=== PATIENT | female | born 1965 | race Caucasian/White ===

== ENCOUNTER 2017-06-25 07:54 | Outpatient (CLI) | payer MEDICAID ==
[2017-06-25 12:02] LABS: BASOPHILS % (AUTO) 0.9 %; EOSINOPHILS # (AUTO) 0.1 10^3/uL (0.0-0.7); EOSINOPHILS % (AUTO) 2.9 %; HCT - HEMATOCRIT 41.7 % (37.0-47.0); HGB - HEMOGLOBIN 13.8 g/dL (12.0-16.0); LYMPHOCYTES # (AUTO) 1.3 10^3/uL (1.5-3.5); LYMPHOCYTES % (AUTO) 32.6 %; MEAN CORPUSCULAR HEMOGLOBIN 32.4 pg (27.0-31.0); MEAN CORPUSCULAR HGB CONC 33.2 g/dL (32.0-36.0); MEAN CORPUSCULAR VOLUME 97.8 fL (81.0-99.0); MONOCYTES # (AUTO) 0.4 10^3/uL (0.0-1.0); MONOCYTES % (AUTO) 9.1 %; NEUTROPHILS # (AUTO) 2.1 10^3/uL (1.5-6.6); NEUTROPHILS % (AUTO) 54.5 %; RED BLOOD COUNT 4.26 10^6/uL (4.20-5.40); RED CELL DISTRIBUTION WIDTH 12.2 % (12.0-15.0); UNCORRECTED WHITE BLOOD COUNT 3.9 x10^3/uL; WHITE BLOOD COUNT 3.9 x10^3/uL (4.8-10.8)
[2017-06-25 12:29] LABS: THYROID STIMULATING HORMONE 1.31 uIU/mL (0.34-5.60)
[2017-06-25 12:32] LABS: ALBUMIN/GLOBULIN RATIO 1.6 (1.0-2.2); BILIRUBIN,TOTAL 0.7 mg/dL (0.2-1.0); BUN - BLOOD UREA NITROGEN 16 mg/dL (6-20); CARBON DIOXIDE - CO2 29 mmol/L (21-32); CHLORIDE 102 mmol/L (101-111); CHOL/HDL RATIO 1.9 (<4.4); CHOLESTEROL 161 mg/dL; CREATININE 0.6 mg/dL (0.4-1.0); GFR - MDRD 105 (>89); GLUCOSE 83 mg/dL (70-100); HDL CHOLESTEROL 83 mg/dL; IRON 135 ug/dL (28-170); MAGNESIUM 1.9 mg/dL (1.7-2.8); POTASSIUM 3.8 mmol/L (3.5-5.0); SODIUM 136 mmol/L (135-145); TOTAL IRON BINDING CAPACITY 344 ug/dL (250-450); TOTAL PROTEIN 6.4 g/dL (6.7-8.2); TRANSFERRIN 246 mg/dL (192-382); TRIGLYCERIDES 36 mg/dL
[2017-06-25 12:35] LABS: FERRITIN 22.4 ng/mL (11.0-306.8)
[2017-06-25 12:56] LABS: FOLLICLE STIMULATING HORMONE 123.07 mIU/mL; LDL CHOLESTEROL,DIRECT 59 mg/dL
[2017-06-25 12:57] LABS: LUTEINIZING HORMONE 52.57 mIU/mL
== END 2017-06-25 07:55 | disposition home or self-care (01) ==
LOC: LAB.F 07:54
PROVIDERS: ATTEND Nurse Practitioner Family
DX: R53.83 Other fatigue (principal); Z13.6 Encounter for screening for cardiovascular disorders; F64.9 Gender identity disorder, unspecified; Z79.890 Hormone replacement therapy; R79.0 Abnormal level of blood mineral
CPT/HCPCS: 36415; 80053; 80061; 82607; 82670; 82672; 82728; 83001; 83002; 83540; 83735; 84403; 84443; 84466; 85025; 86141

== ENCOUNTER 2017-12-04 15:08 | Outpatient (CLI) | payer MEDICAID | END 2017-12-04 15:09 | disposition home or self-care (01) | LOC: RT.S 15:08 | PROVIDERS: ATTEND Nurse Practitioner Family | DX: R00.2 Palpitations (principal) | CPT/HCPCS: 93005 ==

== ENCOUNTER 2018-02-19 06:14 | Day surgery (SDC) | payer MEDICAID ==
[2018-02-19] MEDS ORDERED: LACTATED RINGERS 1,000 ML IV ONE (06:35)
[2018-02-19] MEDS ORDERED: fentaNYL 250 MCG/5 ML VIAL IVP ONE (07:54)
[2018-02-19] MEDS ORDERED: MIDAZOLAM 2 MG/2 ML VIAL IVP ONE (07:54)
[2018-02-19 08:53] VITALS: BP 93/66
== END 2018-02-19 06:15 | disposition home or self-care (01) ==
LOC: SDS 06:14
PROVIDERS: ATTEND Surgery
PROC: 0DBK8ZZ Excision of Ascending Colon, Via Natural or Artificial Opening Endoscopic (ICD-10-PCS; principal; 2018-02-19 07:30)
DX: Z12.11 Encounter for screening for malignant neoplasm of colon (principal); D12.2 Benign neoplasm of ascending colon
CPT/HCPCS: 45380; J7120

== ENCOUNTER 2018-11-04 08:52 | Outpatient (CLI) | payer MEDICAID ==
[2018-11-04 18:34] LABS: THYROID STIMULATING HORMONE 1.8 uIU/mL (0.34-5.60)
[2018-11-04 18:36] LABS: FREE T4 (FREE THYROXINE) 0.75 ng/dL (0.58-1.64)
[2018-11-04 18:40] LABS: FERRITIN 21.2 ng/mL (11.0-306.8)
[2018-11-04 19:37] LABS: CHOL/HDL RATIO 1.7 (<4.4); CHOLESTEROL 173 mg/dL; HDL CHOLESTEROL 99 mg/dL
[2018-11-04 20:21] LABS: EOSINOPHILS # (AUTO) 0.1 10^3/uL (0.0-0.7); EOSINOPHILS % (AUTO) 3.6 %; HGB - HEMOGLOBIN 14.2 g/dL (12.0-16.0); LYMPHOCYTES # (AUTO) 1.1 10^3/uL (1.5-3.5); LYMPHOCYTES % (AUTO) 38.1 %; MEAN CORPUSCULAR HEMOGLOBIN 32.9 pg (27.0-31.0); MEAN CORPUSCULAR HGB CONC 33.4 g/dL (32.0-36.0); MEAN CORPUSCULAR VOLUME 98.6 fL (81.0-99.0); MONOCYTES # (AUTO) 0.2 10^3/uL (0.0-1.0); MONOCYTES % (AUTO) 8.2 %; NEUTROPHILS # (AUTO) 1.5 10^3/uL (1.5-6.6); NEUTROPHILS % (AUTO) 49.1 %; PLT - PLATELET COUNT 183 10^3/uL (130-450); RED BLOOD COUNT 4.32 10^6/uL (4.20-5.40); RED CELL DISTRIBUTION WIDTH 12.2 % (12.0-15.0)
[2018-11-04 20:22] LABS: LDL CHOLESTEROL,DIRECT 60 mg/dL; LDLD/HDL RATIO 0.6 (<4.4)
[2018-11-06 16:36] LABS: DHEA SULFATE 37 mcg/dL (8-188)
[2018-11-08 15:47] LABS: METHYLMALONIC ACID 255 nmol/L (87-318)
== END 2018-11-04 08:53 | disposition home or self-care (01) ==
LOC: LAB.F 08:52
PROVIDERS: ATTEND Nurse Practitioner Family
DX: Z87.890 Personal history of sex reassignment (principal); Z13.220 Encounter for screening for lipoid disorders; R79.0 Abnormal level of blood mineral; I48.3 Typical atrial flutter; D51.3 Other dietary vitamin B12 deficiency anemia
CPT/HCPCS: 36415; 80061; 81599; 82607; 82626; 82627; 82670; 82728; 83721; 83735; 83921; 84270; 84402; 84403; 84439; 84443; 84481; 85025

== ENCOUNTER 2020-09-22 07:49 | Outpatient (CLI) | payer MEDICAID ==
[2020-09-22 16:08] LABS: BASOPHILS % (AUTO) 1.1 %; EOSINOPHILS # (AUTO) 0.1 10^3/uL (0.0-0.7); EOSINOPHILS % (AUTO) 3.3 %; HGB - HEMOGLOBIN 13.3 g/dL (12.0-16.0); LYMPHOCYTES # (AUTO) 1.5 10^3/uL (1.5-3.5); LYMPHOCYTES % (AUTO) 40.2 %; MEAN CORPUSCULAR HEMOGLOBIN 31.6 pg (27.0-31.0); MEAN CORPUSCULAR HGB CONC 31.1 g/dL (32.0-36.0); MEAN CORPUSCULAR VOLUME 101.7 fL (81.0-99.0); MEAN PLATELET VOLUME 11.4 fL (7.9-10.8); MONOCYTES # (AUTO) 0.4 10^3/uL (0.0-1.0); MONOCYTES % (AUTO) 9.8 %; NEUTROPHILS # (AUTO) 1.7 10^3/uL (1.5-6.6); NEUTROPHILS % (AUTO) 45.6 %; PLT - PLATELET COUNT 209 10^3/uL (130-450); RED BLOOD COUNT 4.21 10^6/uL (4.20-5.40); RED CELL DISTRIBUTION WIDTH 11.8 % (12.0-15.0); WHITE BLOOD COUNT 3.7 x10^3/uL (4.8-10.8)
[2020-09-22 16:52] LABS: ALBUMIN 4.2 g/dL (3.2-5.5); ALBUMIN/GLOBULIN RATIO 1.6 (1.0-2.2); ALKALINE PHOSPHATASE 61 IU/L (42-121); ALT ALANINE AMINOTRANSFERASE 13 IU/L (10-60); AST ASPARTATE AMINOTRANSFERASE 16 IU/L (10-42); BILIRUBIN,TOTAL 0.7 mg/dL (0.2-1.0); BUN - BLOOD UREA NITROGEN 15 mg/dL (6-20); CALCIUM 9.5 mg/dL (8.5-10.3); CARBON DIOXIDE - CO2 28 mmol/L (21-32); CHLORIDE 100 mmol/L (101-111); CHOLESTEROL 185 mg/dL; CREATININE 0.6 mg/dL (0.4-1.0); GLUCOSE 89 mg/dL (70-100); HDL CHOLESTEROL 92 mg/dL; MAGNESIUM 2.2 mg/dL (1.7-2.8); TOTAL PROTEIN 6.9 g/dL (6.7-8.2)
[2020-09-22 16:59] LABS: T4 (THYROXINE) 7.07 ug/dL (6.09-12.23)
[2020-09-22 17:00] LABS: THYROID STIMULATING HORMONE 2.38 uIU/mL (0.34-5.60)
[2020-09-22 17:06] LABS: TOTAL T3 1.13 ng/mL (0.87-1.78)
[2020-09-22 17:07] LABS: FERRITIN 14.7 ng/mL (11.0-306.8)
[2020-09-22 17:12] LABS: FOLATE 12.29 ng/mL (5.90 - >24.8)
[2020-09-22 17:27] LABS: FOLLICLE STIMULATING HORMONE 128.89 mIU/mL
[2020-09-22 17:28] LABS: LUTEINIZING HORMONE 54.99 mIU/mL
[2020-09-23 06:31] LABS: ESTRADIOL <15 pg/mL; PROGESTERONE <0.5 ng/mL
[2020-09-23 11:37] LABS: HOMOCYSTEINE 8.6 umol/L (<10.4)
[2020-09-24 16:02] LABS: DHEA SULFATE 45 mcg/dL (8-188)
[2020-09-24 17:02] LABS: METHYLMALONIC ACID 210 nmol/L (87-318)
== END 2020-09-22 07:50 | disposition home or self-care (01) ==
LOC: LAB.S 07:49
PROVIDERS: ATTEND Registered Nurse
DX: R79.0 Abnormal level of blood mineral (principal); E67.3 Hypervitaminosis D; Z79.890 Hormone replacement therapy; Z87.890 Personal history of sex reassignment
CPT/HCPCS: 36415; 80053; 80061; 81599; 82306; 82607; 82627; 82670; 82728; 82746; 83001; 83002; 83090; 83721; 83735; 83921; 84144; 84403; 84436; 84443; 84480; 85025

== ENCOUNTER 2020-11-26 07:01 | Outpatient (CLI) | payer MEDICAID ==
[2020-11-26 15:00] LABS: BASOPHILS % (AUTO) 1.3 %; EOSINOPHILS # (AUTO) 0.1 10^3/uL (0.0-0.7); EOSINOPHILS % (AUTO) 3.6 %; HCT - HEMATOCRIT 44.4 % (37.0-47.0); HGB - HEMOGLOBIN 14.1 g/dL (12.0-16.0); LYMPHOCYTES # (AUTO) 1.2 10^3/uL (1.5-3.5); LYMPHOCYTES % (AUTO) 39.9 %; MEAN CORPUSCULAR HEMOGLOBIN 32.2 pg (27.0-31.0); MEAN CORPUSCULAR HGB CONC 31.8 g/dL (32.0-36.0); MEAN CORPUSCULAR VOLUME 101.4 fL (81.0-99.0); MEAN PLATELET VOLUME 11.1 fL (7.9-10.8); MONOCYTES # (AUTO) 0.3 10^3/uL (0.0-1.0); MONOCYTES % (AUTO) 10.6 %; NEUTROPHILS # (AUTO) 1.3 10^3/uL (1.5-6.6); NEUTROPHILS % (AUTO) 44.3 %; PLT - PLATELET COUNT 223 10^3/uL (130-450); RED BLOOD COUNT 4.38 10^6/uL (4.20-5.40); RED CELL DISTRIBUTION WIDTH 12.3 % (12.0-15.0)
[2020-11-26 15:56] LABS: % IRON SATURATION 27 % (20-50); IRON 95 ug/dL (28-170); TOTAL IRON BINDING CAPACITY 353 ug/dL (250-450); TRANSFERRIN 252 mg/dL (192-382)
[2020-11-26 15:59] LABS: T4 (THYROXINE) 7.23 ug/dL (6.09-12.23)
[2020-11-26 16:05] LABS: THYROID STIMULATING HORMONE 2.32 uIU/mL (0.34-5.60)
[2020-11-26 16:08] LABS: FERRITIN 49.1 ng/mL (11.0-306.8)
== END 2020-11-26 07:02 | disposition home or self-care (01) ==
LOC: LAB.S 07:01
PROVIDERS: ATTEND Registered Nurse
DX: Z87.890 Personal history of sex reassignment (principal); Z79.890 Hormone replacement therapy
CPT/HCPCS: 36415; 82728; 83540; 84436; 84443; 84466; 84480; 85025

== ENCOUNTER 2021-12-19 07:23 | Outpatient (CLI) | payer MEDICAID ==
[2021-12-19 14:52] LABS: EOSINOPHILS # (AUTO) 0.1 10^3/uL (0.0-0.7); EOSINOPHILS % (AUTO) 2.1 %; HCT - HEMATOCRIT 41.3 % (37.0-47.0); HGB - HEMOGLOBIN 13.7 g/dL (12.0-16.0); LYMPHOCYTES # (AUTO) 1.4 10^3/uL (1.5-3.5); LYMPHOCYTES % (AUTO) 35.6 %; MEAN CORPUSCULAR HEMOGLOBIN 33.1 pg (27.0-31.0); MEAN CORPUSCULAR HGB CONC 33.2 g/dL (32.0-36.0); MEAN CORPUSCULAR VOLUME 99.8 fL (81.0-99.0); MEAN PLATELET VOLUME 11.8 fL (7.9-10.8); MONOCYTES # (AUTO) 0.4 10^3/uL (0.0-1.0); MONOCYTES % (AUTO) 9.5 %; NEUTROPHILS % (AUTO) 51.5 %; PLT - PLATELET COUNT 183 10^3/uL (130-450); RED BLOOD COUNT 4.14 10^6/uL (4.20-5.40); RED CELL DISTRIBUTION WIDTH 11.8 % (12.0-15.0); WHITE BLOOD COUNT 3.9 x10^3/uL (4.8-10.8)
[2021-12-19 15:24] LABS: % IRON SATURATION 29 % (20-50); ALBUMIN 3.9 g/dL (3.2-5.5); ALBUMIN/GLOBULIN RATIO 1.4 (1.0-2.2); ALKALINE PHOSPHATASE 59 IU/L (42-121); ALT ALANINE AMINOTRANSFERASE 19 IU/L (10-60); AST ASPARTATE AMINOTRANSFERASE 19 IU/L (10-42); BILIRUBIN,TOTAL 0.6 mg/dL (0.2-1.0); BUN - BLOOD UREA NITROGEN 18 mg/dL (6-20); CALCIUM 8.9 mg/dL (8.5-10.3); CARBON DIOXIDE - CO2 28 mmol/L (21-32); CHLORIDE 101 mmol/L (101-111); CHOL/HDL RATIO 1.8 (<4.4); CHOLESTEROL 140 mg/dL; CREATININE 0.5 mg/dL (0.4-1.0); GFR - MDRD 128 (>89); GLUCOSE 88 mg/dL (70-100); HDL CHOLESTEROL 80 mg/dL; IRON 97 ug/dL (28-170); POTASSIUM 3.7 mmol/L (3.5-5.0); SODIUM 138 mmol/L (135-145); TOTAL IRON BINDING CAPACITY 339 ug/dL (250-450); TOTAL PROTEIN 6.6 g/dL (6.7-8.2); TRANSFERRIN 242 mg/dL (192-382); TRIGLYCERIDES 23 mg/dL
[2021-12-19 15:32] LABS: THYROID STIMULATING HORMONE 3.37 uIU/mL (0.34-5.60)
[2021-12-19 15:36] LABS: FREE T4 (FREE THYROXINE) 0.75 ng/dL (0.58-1.64)
[2021-12-19 15:37] LABS: FREE T3 2.45 pg/mL (2.5-3.9)
[2021-12-19 15:40] LABS: FERRITIN 23.5 ng/mL (11.0-306.8)
[2021-12-19 15:43] LABS: FOLATE 17.18 ng/mL (5.90 - >24.8)
[2021-12-19 15:59] LABS: FOLLICLE STIMULATING HORMONE 114.58 mIU/mL
[2021-12-19 16:00] LABS: LUTEINIZING HORMONE 52.77 mIU/mL
[2021-12-19 16:06] LABS: CRP - C-REACTIVE PROTEIN < 1.0 mg/dL (0-1.0)
[2021-12-20 06:36] LABS: ESTRADIOL <15 pg/mL; PROGESTERONE <0.5 ng/mL
[2021-12-20 10:57] LABS: HOMOCYSTEINE 7.6 umol/L (<10.4)
[2021-12-21 02:27] LABS: DHEA SULFATE 29 mcg/dL (5-167)
[2021-12-22 19:46] LABS: METHYLMALONIC ACID 168 nmol/L (87-318)
== END 2021-12-19 07:24 | disposition home or self-care (01) ==
LOC: LAB.S 07:23
PROVIDERS: ATTEND Acupuncturist
DX: Z00.01 Encounter for general adult medical examination with abnormal findings (principal); N95.1 Menopausal and female climacteric states; I47.1 Supraventricular tachycardia; I81 Portal vein thrombosis; I49.1 Atrial premature depolarization; K58.9 Irritable bowel syndrome, unspecified; Z13.21 Encounter for screening for nutritional disorder; Z71.3 Dietary counseling and surveillance; R14.0 Abdominal distension (gaseous); R14.1 Gas pain; R12 Heartburn; H93.19 Tinnitus, unspecified ear; Z13.220 Encounter for screening for lipoid disorders; E78.2 Mixed hyperlipidemia; Z13.228 Encounter for screening for other metabolic disorders; Z13.1 Encounter for screening for diabetes mellitus; Z13.29 Encounter for screening for other suspected endocrine disorder; R79.82 Elevated C-reactive protein (CRP); E55.9 Vitamin D deficiency, unspecified; E34.8 Other specified endocrine disorders; E34.9 Endocrine disorder, unspecified; R73.09 Other abnormal glucose; D53.9 Nutritional anemia, unspecified; F41.1 Generalized anxiety disorder; F43.23 Adjustment disorder with mixed anxiety and depressed mood; F33.9 Major depressive disorder, recurrent, unspecified
CPT/HCPCS: 36415; 80053; 80061; 81599; 82306; 82607; 82627; 82670; 82672; 82728; 82746; 83001; 83002; 83036; 83090; 83540; 83721; 83735; 83880; 83921; 84140; 84144; 84260; 84270; 84402; 84403; 84439; 84443; 84466; 84481; 84630; 85025; 86140; 86800